=== PATIENT | female | born 1985 | race Caucasian/White ===

== ENCOUNTER 2018-02-14 03:36 | Emergency (ER) | payer OTHER ==
[~2018-02-14] VITALS: Ht 162.6 cm; Wt 83.9 kg
[2018-02-14] MEDS ORDERED: DOLOGESIC 500-1 EACH PO (05:46)
[2018-02-14] MEDS ORDERED: ZYNCOF 20-400120 ML PO (05:46)
== END 2018-02-14 05:52 | disposition home or self-care (01) ==
LOC: ER 03:36
DX: J11.1 Influenza due to unidentified influenza virus with other respiratory manifestations (principal); R50.9 Fever, unspecified

== ENCOUNTER 2020-03-11 18:01 | Emergency (ER) | payer OTHER ==
[~2020-03-11] VITALS: Ht 165.1 cm; Wt 91.2 kg
[~2020-03-11 18:01] MED LIST: DOLOGESIC 500-1 EACH PO; ZYNCOF 20-400120 ML PO
[2020-03-11] MEDS ORDERED: KETO10TA2 PO (21:43)
[2020-03-11] MEDS ORDERED: INTESTINEX680 M1 PO (21:43)
[2020-03-11] MEDS ORDERED: PEPCID AC20 MG PO (21:43)
[2020-03-11] MEDS ORDERED: CLINDAMYCIN HC300 MG PO (21:43)
== END 2020-03-11 21:57 | disposition home or self-care (01) ==
LOC: ER 18:01
DX: L02.411 Cutaneous abscess of right axilla (principal); L02.412 Cutaneous abscess of left axilla; L73.2 Hidradenitis suppurativa

== ENCOUNTER 2021-01-30 07:33 | Emergency (ER) | payer OTHER ==
[~2021-01-30] VITALS: Ht 162.6 cm; Wt 91.2 kg
[~2021-01-30 07:33] MED LIST changes: +CLINDAMYCIN HC300 MG PO; +INTESTINEX680 M1 PO; +KETO10TA2 PO; +PEPCID AC20 MG PO
[2021-01-30] MEDS ORDERED: ANTICONCEPTIVOS (07:59)
[2021-01-30] MEDS ORDERED: INTESTINEX680 M2 PO (09:58)
[2021-01-30] MEDS ORDERED: PEPCID AC20 MG PO (09:58)
[2021-01-30] MEDS ORDERED: AMOX-CLAV 875-1 EAC1 PO (09:58)
[2021-01-30] MEDS ORDERED: NAPROXEN375 MG PO (09:58)
== END 2021-01-30 10:45 | disposition home or self-care (01) ==
LOC: ER 07:33
DX: L02.411 Cutaneous abscess of right axilla (principal)